=== PATIENT | male | born 1930 | race Caucasian/White ===

== ENCOUNTER 2017-12-31 17:07 | Emergency (ER) | payer OTHER ==
[~2017-12-31] VITALS: Ht 170.2 cm; Wt 79.4 kg
[2017-12-31] MEDS ORDERED: KEFLEX500 M1 PO (18:53)
== END 2017-12-31 19:27 | disposition home or self-care (01) ==
LOC: ER 17:07
DX: S62.501B Fracture of unspecified phalanx of right thumb, initial encounter for open fracture (principal); W31.2XXA Contact with powered woodworking and forming machines, initial encounter; Y93.89 Activity, other specified; Y92.89 Other specified places as the place of occurrence of the external cause; Y99.8 Other external cause status